=== PATIENT | female | born 1965 | race Caucasian/White ===

== ENCOUNTER 2020-06-05 11:31 | Emergency (ER) | payer SELFPAY ==
[2020-06-05 11:37] VITALS: BP 125/87; PULSE 130; RESP 14; TEMP 36.7; O2SAT 97; BMI 28.3
--- NOTE | 2020-06-05 11:54 | ED_ITS ---
HPI - Wound/Laceration General: Chief Complaint: Wound/Laceration Stated Complaint: LEFT FOOT LAC Time Seen by Provider: 06/05/20 11:39 Source: patient Mode of arrival: ambulatory Limitations: no limitations History of Present Illness: HPI narrative: 5-year-old female who states she stepped on a piece of glass roughly 15 to 20 minutes ago. States was a large piece of glass was able to remove the piece. She does not believe she has any retained foreign body. Patient states that it is painful and she rates her pain a 5 out of 10. She has a roughly 3 cm laceration to the bottom of her foot. Onset (ago): minute(s) Associated symptoms: Denies chills, fever(s), nausea or vomiting Review of Systems Const: Denies: fever(s), chills, body aches or change in appetite Eyes: Denies: blurry vision or eye discomfort ENMT: Denies: throat pain or dental pain Card: Denies: chest pain Resp: Denies: dyspnea GI: Denies: abdominal pain, nausea, vomiting or diarrhea : Denies: dysuria Musc: Denies: neck pain or back pain Skin/Breast: Denies: rash Neuro: Denies: headache(s) Psych: Denies: depression Luis/Lymph: Denies: easy bruising All/Imm: Denies: urticaria Physical Exam Const: COMMON NORMALS: no acute distress, patient oriented x3 and healthy appearing HENMT: COMMON NORMALS: normocephalic and atraumatic HEAD & SCALP: normocephalic and atraumatic Eye: COMMON NORMALS: Equal, round and reactive pupils present and EOMs intact bilaterally PUPIL: Yes Equal, round and reactive pupils present Neck/C-Spine: COMMON NORMALS: full ROM and supple Chest: COMMONS NORMALS: normal inspection of the chest and normal palpation of entire chest wall Resp: COMMON NORMALS: normal respiratory effort, No retractions, No use of accessory muscles and clear to auscultation bilaterally AUSCULTATION: clear to auscultation bilaterally Cardio: COMMON NORMALS: regular rate, regular rhythm and No murmurs present (Cardio) RATE: regular rate RHYTHM: regular rhythm GI: COMMON NORMALS: Normal to inspection, nondistended, normoactive bowel sounds present, Soft to palpation, non-tender and no masses PALPATION: Yes Soft to palpation Extremity: COMMON NORMALS: normal to inspection and full ROM Neuro: COMMON NORMALS: patient oriented x3, moves all extremities and no focal motor deficits Psych: COMMON NORMALS: mental status grossly normal, Normal thought process present and cooperative THOUGHT PROCESS: Normal thought process present Skin: COMMON NORMALS: no rashes or lesions noted NARRATIVE SKIN EXAM: laceration to left foot 3 cm GENERAL SKIN EXAM: no rashes or lesions noted Procedures Laceration Laceration 1: Site: lower extremity Side (If applicable): left Size (cm): 5 Description: linear Local Anesthetic: lidocaine 1% Amount of anesthesia used (mL): 10 Pre-repair: wound explored and irrigated extensively Skin layer closed with: nylon Size (cm): 5-0 Number of sutures: 7 Technique: simple, interrupted Course Vital Signs: Vital signs: Vital Signs Temperature 98.1 F 06/05/20 11:37 Pulse Rate 130 H 06/05/20 11:37 Respiratory Rate 14 06/05/20 11:37 Blood Pressure 125/87 06/05/20 11:37 Pulse Oximetry 97 06/05/20 11:37 MDM - Wound/Laceration MDM Narrative: Medical decision making narrative: Patient presents here with a laceration to her foot. Was thoroughly cleaned and will place on antibiotics. Was repaired she is return in 10 days for suture removal. Patient is stable for discharge. Discharge Plan Discharge Patient Disposition: Home, Self-Care Clinical Impression: Laceration Condition: Stable Prescriptions: [place] 5-325 mg tablet 1 tab PO Q6H PRN (Reason: pain) Qty: 10 RF: 0 Keflex 500 mg capsule 500 mg PO Q6H 7 Days Qty: 28 RF: 0 Discharge Orders: Discharge Order (Routine); Ordered 06/05/20 Ordered By: Azael George Referrals: Azael George MD [Emergency Provider] - 7-10 days (10 days for suture removal) Discharge Diet: Advance as tolerated Discharge Activity: Resume usual activity Patient Instructions: Laceration (ED) Stand Alone Forms: Work/School Release Coding Level of Care Code 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
--- NOTE | 2020-06-05 11:56 | XRR_ITS ---
PROCEDURE INFORMATION: Exam: XR Left Foot Complete Exam date and time: 06/05/2020 11:57 AM Age: 55 years old Clinical indication: Injury or trauma; Injury history: Stepped on glass; Initial encounter; Laceration; Foot; Left; Foreign body involvement not specified TECHNIQUE: Imaging protocol: XR Left foot. Views: 3 or more views. COMPARISON: No relevant prior studies available. FINDINGS: Bones/joints: Hindfoot-midfoot and midfoot-forefoot articulations are normal. Phalanges without an acute process. Subtalar joint and the tibiotalar joint appears normal. large spur formation at the insertion of the plantar aponeurosis. Soft tissues: Tiny radiopaque density in the soft tissues of the plantar aspect of the midfoot just inferior to the calcaneus not seen on only the lateral view of 2 mm. Whether this is a tiny ossific fragment or a small foreign body is difficult to ascertain. Other findings: Metatarsals without fracture. XR/XR foot LT min 3V* 12146 IMPRESSION: 1. Large spur formation at the insertion of the plantar aponeurosis. 2. Tiny radiopaque density in the soft tissues of the plantar aspect of the midfoot just inferior to the calcaneus not seen on only the lateral view of 2 mm. Whether this is a tiny ossific fragment or a small foreign body is difficult to ascertain.
[2020-06-05] MEDS: HYDROcodone-acetaminophen 10-325 mg Tablet 1 TAB PO (12:08)
[2020-06-05 12:42] VITALS: BP 147/93; PULSE 115; RESP 18; TEMP 36.7; O2SAT 96
== END 2020-06-05 12:42 | disposition home or self-care (01) ==
PROVIDERS: Emergency Provider Emergency Medicine
DX: S91.312A Laceration without foreign body, left foot, initial encounter (principal); W25.XXXA Contact with sharp glass, initial encounter
CPT/HCPCS: 12002; 12345; 73630; 99281; 99283

== ENCOUNTER 2023-06-27 10:33 | Emergency (ER) | payer MEDICAID, SELFPAY ==
[2023-06-27 11:09] VITALS: BP 163/100; PULSE 104; RESP 18; TEMP 37; O2SAT 100; BMI 26.6
--- NOTE | 2023-06-27 11:38 | W.ED.SKABFB ---
HPI - Skin/Abscess/Foreign Bdy General: Chief complaint: Animal Bite Stated complaint: bug bite chest Time Seen by Provider: 06/27/23 11:20 Source: patient Mode of arrival: ambulatory Limitations: no limitations History of Present Illness: Patient is a 58-year-old female who presents to ED today with complaint of a possible bug bite to her anterior chest wall. Patient states after mowing the yard approximately 2 days ago she noticed a small red bump that she thought could be an insect bite. She states since that time the area has continued to enlarge/spread and she believes now she is developing an abscess. No history of MRSA. He has not been running fevers. MD complaint: insect bite/sting and abscess/boil Onset (ago): day(s) Tetanus up to date: yes Location: chest Severity: moderate Quality: burning Pain Consistency: constant Relieving factors: none Exacerbating factors: none Context: none Associated symptoms: Reports no associated symptoms; Deny chills, fever(s), nausea or vomiting Treatments prior to arrival: none Review of Systems Const: Denies: fever(s), chills, body aches, fatigue or malaise GI: Denies: nausea or vomiting Skin/Breast: Reports: new lesions Neuro: Denies: headache(s), numbness in extremities, weakness in extremities, sensory changes or dizziness Physical Exam Const: COMMON NORMALS: no acute distress, average body habitus, patient oriented x3, no limitations, alert and well nourished GENERAL APPEARANCE: cooperative ORIENTATION/CONSCIOUSNESS: Yes awake, Yes oriented to person, Yes oriented to place and Yes oriented to time Lymph: LYMPHATIC: no lymphadenopathy noted Chest: Chest images (female): 1. early abscess formation; induration without fluctuance; no drainage noted; surrounding cellulitis 2. surrounding cellulitis; outlined with skin marker Resp: COMMON NORMALS: normal respiratory effort and clear to auscultation bilaterally AUSCULTATION: clear to auscultation bilaterally Cardio: COMMON NORMALS: regular rate and regular rhythm RATE: regular rate RHYTHM: regular rhythm Neuro: COMMON NORMALS: patient oriented x3 SENSORIUM/ORIENTATION: Yes alert, Yes oriented to person, Yes oriented to place and Yes oriented to time Skin: NARRATIVE SKIN EXAM: anterior chest wall developing abscess with surrounding cellulitis Course Vital Signs: Vital signs: Vital Signs Temperature 98.6 F 06/27/23 11:09 Pulse Rate 79 06/27/23 11:41 Respiratory Rate 16 06/27/23 11:41 Blood Pressure 146/87 06/27/23 11:41 Pulse Oximetry 100 06/27/23 11:41 Oxygen Delivery Me thod Room Air 06/27/23 11:41 MDM - Skin/Abscess/Foreign Bdy Medicial Decision Making Patient at this time has early abscess formation with surrounding cellulitis to her anterior chest wall. She initially was tachycardic on vital sign assessment in triage however during my examination rate is normal. She has not been running fevers. Bedside ultrasound of the abscess cavity showing multiple septations but nothing that seems amendable to incision and drainage at this time. Blood work overall is unlikely to change my management. She was given IM Rocephin prior to discharge and will be placed on Bactrim. Strict return ED precautions given. Discussed the possibility of I&D in a few days. Discharge Plan Discharge Patient Disposition: Home Clinical Impression: Abscess of chest wall Condition: Stable Prescriptions: New Bactrim DS 800-160 mg tablet 2 tab PO BID 7 Days Qty: 28 0RF No [place] 5-325 mg tablet 1 tab PO Q6H PRN (Reason: pain) Qty: 10 0RF Discharge Orders: Discharge ED (Routine); Ordered 06/27/23 Ordered By: Melony Mckay Referrals: Ruben Panda DO [Primary Care Provider] - Patient Instructions: Cellulitis, Abscess (ED) Activity Restrictions/Additional Instructions: As we discussed begin your antibiotics immediately making sure you do not miss any doses. The area of redness has been outlined with a skin marker. We need to see you back in the emergency department for redness spreading outside of this line. We also need to see you if no improvement over the next 48 hours despite antibiotics or if you begin running fevers or feel generally worse or unwell. As we discussed abscess is not amendable for incision and drainage at this time but certainly could be over the next 1 to 2 days. Coding Level of Care Code ED Nanoscience Technician for Nereida Arredondo
[2023-06-27 11:41] VITALS: BP 146/87; PULSE 79; RESP 16; O2SAT 100
[2023-06-27] MEDS: cefTRIAXone 1,000 MG in water for injection-sterile 2.1 ML 2.1 MG IM (11:49)
== END 2023-06-27 12:06 | disposition home or self-care (01) ==
PROVIDERS: Emergency Provider Physician Assistant; PCP Family Medicine
DX: L02.213 Cutaneous abscess of chest wall (principal); L03.313 Cellulitis of chest wall
CPT/HCPCS: 96372; 99284; J0696